=== PATIENT | female | born 1945 | race Caucasian/White ===

== ENCOUNTER 2016-05-03 09:03 | Outpatient (CLI) | payer MEDICARE, OTHER | END 2016-05-03 09:04 | disposition home or self-care (01) | DX: R73.01 Impaired fasting glucose (principal); D64.9 Anemia, unspecified; R03.0 Elevated blood-pressure reading, without diagnosis of hypertension; M15.9 Polyosteoarthritis, unspecified; M25.50 Pain in unspecified joint ==

== ENCOUNTER 2016-05-24 13:11 | Outpatient (CLI) | payer MEDICARE, OTHER | END 2016-05-24 13:12 | disposition home or self-care (01) | DX: R06.02 Shortness of breath (principal); G47.30 Sleep apnea, unspecified; R05 Cough ==

== ENCOUNTER 2016-06-11 13:15 | Outpatient (CLI) | payer MEDICARE, OTHER | END 2016-06-11 13:16 | disposition home or self-care (01) | DX: R06.00 Dyspnea, unspecified (principal) ==

== ENCOUNTER 2016-06-13 15:27 | Outpatient (CLI) | payer MEDICARE, OTHER | END 2016-06-13 15:28 | disposition home or self-care (01) | DX: Z12.31 Encounter for screening mammogram for malignant neoplasm of breast (principal) ==

== ENCOUNTER 2016-06-27 12:53 | Emergency (ER) | payer MEDICARE, OTHER ==
[2016-06-27] MEDS ORDERED: oxyCOD/ACETAMIN 5 MG/325 MG TABLET PO STA (13:23)
[2016-06-27] MEDS ORDERED: oxyCOD/ACETAMIN 5 MG/325 MG TABLET PO ONE (13:29)
== END 2016-06-27 15:05 | disposition home or self-care (01) ==
DX: M17.11 Unilateral primary osteoarthritis, right knee (principal); M54.31 Sciatica, right side; K21.9 Gastro-esophageal reflux disease without esophagitis; Z87.11 Personal history of peptic ulcer disease; M19.90 Unspecified osteoarthritis, unspecified site
CPT/HCPCS: 73564; 99283; A9270

== ENCOUNTER 2017-04-30 10:28 | Outpatient (CLI) | payer MEDICARE, OTHER ==
[2017-04-30 11:02] LABS: ABNORMAL LYMPHS % (MANUAL) 0 %; BAND NEUTROPHILS % (MANUAL) 0 %
[2017-04-30 11:08] LABS: BASOPHILS % (AUTO) 0.6 %; EOSINOPHILS % (AUTO) 3.4 %; HGB - HEMOGLOBIN 10.3 g/dL (12.0-16.0); LYMPHOCYTES % (AUTO) 22.9 %; MEAN CORPUSCULAR HEMOGLOBIN 22.7 pg (27.0-31.0); MEAN CORPUSCULAR HGB CONC 31.5 g/dL (32.0-36.0); MEAN CORPUSCULAR VOLUME 72.3 fL (81.0-99.0); MEAN RETIC VALUE 98.8; MONOCYTES % (AUTO) 7.2 %; NEUTROPHILS % (AUTO) 65.9 %; PLT - PLATELET COUNT 284 10^3/uL (130-450); RED BLOOD COUNT 4.53 10^6/uL (4.20-5.40); RED CELL DISTRIBUTION WIDTH 18.6 % (12.0-15.0); WHITE BLOOD COUNT 8.1 x10^3/uL (4.8-10.8)
[2017-04-30 11:27] LABS: BASOPHILS # (MANUAL) 0.1 10^3/uL (0-0.1); BASOPHILS % (MANUAL) 1 %; DIFFERENTIAL COMMENT MANUAL DIFFERENTIAL; EOSINOPHILS # (MANUAL) 0.4 10^3/uL (0-0.7); LYMPHOCYTES # (MANUAL) 2.6 10^3/uL (1.5-3.5); LYMPHOCYTES % (MANUAL) 18 %; MONOCYTES # (MANUAL) 0.5 10^3/uL (0.0-1.0); NEUTROPHILS # (MANUAL) 4.5 10^3/uL (1.5-6.6); NEUTROPHILS % (MANUAL) 56 %; PLATELET MORPHOLOGY RARE GIANT PLATELETS (NORMAL); RBC MORPHOLOGY (MULTIPLE) 2+ ANISOCYTOSIS (NORMAL)
[2017-04-30 11:44] LABS: FERRITIN 9.9 ng/mL (11.0-306.8)
[2017-04-30 11:45] LABS: % IRON SATURATION 6 % (20-50); IRON 27 ug/dL (28-170); TOTAL IRON BINDING CAPACITY 445 ug/dL (250-450); TRANSFERRIN 318 mg/dL (192-382)
[2017-04-30 11:47] LABS: FOLATE 8.6 ng/mL (5.90 - >24.8)
== END 2017-04-30 10:29 | disposition home or self-care (01) ==
LOC: LAB 10:28
PROVIDERS: ATTEND Physician Assistant
DX: G25.81 Restless legs syndrome (principal); R06.09 Other forms of dyspnea; R79.82 Elevated C-reactive protein (CRP); D64.9 Anemia, unspecified; R53.83 Other fatigue
CPT/HCPCS: 36415; 81599; 82607; 82728; 82746; 82784; 83010; 83540; 84466; 85025; 85044; 86880

== ENCOUNTER 2017-06-27 09:21 | Outpatient (CLI) | payer MEDICARE, OTHER ==
[2017-06-27 09:39] LABS: ABNORMAL LYMPHS % (MANUAL) 0 %; BAND NEUTROPHILS % (MANUAL) 0 %
[2017-06-27 17:46] LABS: BASOPHILS % (AUTO) 1.2 %; EOSINOPHILS % (AUTO) 3.2 %; HGB - HEMOGLOBIN 10.2 g/dL (12.0-16.0); LYMPHOCYTES % (AUTO) 21.9 %; MEAN CORPUSCULAR HEMOGLOBIN 22.1 pg (27.0-31.0); MEAN CORPUSCULAR HGB CONC 29.9 g/dL (32.0-36.0); MEAN CORPUSCULAR VOLUME 73.8 fL (81.0-99.0); MEAN PLATELET VOLUME 8.9 fL (7.9-10.8); MEAN RETIC VALUE 101.9; MONOCYTES % (AUTO) 5.5 %; NEUTROPHILS % (AUTO) 68.2 %; PLT - PLATELET COUNT 287 10^3/uL (130-450); RED BLOOD COUNT 4.61 10^6/uL (4.20-5.40); RED CELL DISTRIBUTION WIDTH 18.1 % (12.0-15.0); WHITE BLOOD COUNT 8.4 x10^3/uL (4.8-10.8)
[2017-06-27 18:31] LABS: ALBUMIN 4.1 g/dL (3.2-5.5); ALBUMIN/GLOBULIN RATIO 1.4 (1.0-2.2); BILIRUBIN,TOTAL 0.2 mg/dL (0.2-1.0); CREATININE 0.9 mg/dL (0.4-1.0)
[2017-06-27 21:22] LABS: BASOPHILS # (MANUAL) 0.1 10^3/uL (0-0.1); BASOPHILS % (MANUAL) 1 %; EOSINOPHILS # (MANUAL) 0.3 10^3/uL (0-0.7); LYMPHOCYTES # (MANUAL) 2.1 10^3/uL (1.5-3.5); LYMPHOCYTES % (MANUAL) 23 %; MONOCYTES # (MANUAL) 0.2 10^3/uL (0.0-1.0); NEUTROPHILS # (MANUAL) 5.8 10^3/uL (1.5-6.6); NEUTROPHILS % (MANUAL) 69 %
[2017-06-27 21:26] LABS: PLATELET ESTIMATE, MANUAL NORMAL (130-450,000) (NORMAL); PLATELET MORPHOLOGY 1+ GIANT PLATELETS (NORMAL)
[2017-06-27 21:27] LABS: DIFFERENTIAL COMMENT MANUAL DIFFERENTIAL
== END 2017-06-27 09:22 | disposition home or self-care (01) ==
LOC: LAB.F 09:21
PROVIDERS: ATTEND Physician Assistant
DX: D64.9 Anemia, unspecified (principal)
CPT/HCPCS: 36415; 80053; 81599; 82784; 83010; 83615; 85025; 85044; 86880

== ENCOUNTER 2019-07-05 18:59 | Outpatient (CLI) | payer MEDICARE, OTHER | END 2019-07-05 19:00 | disposition home or self-care (01) | LOC: COV 18:59 | PROVIDERS: ATTEND Family Medicine | DX: R53.83 Other fatigue (principal) | CPT/HCPCS: 81599 ==

== ENCOUNTER 2019-08-27 07:16 | Outpatient (CLI) | payer MEDICARE, OTHER ==
[2019-08-27 15:31] LABS: BASOPHILS % (AUTO) 0.4 %; EOSINOPHILS # (AUTO) 0.2 10^3/uL (0.0-0.7); EOSINOPHILS % (AUTO) 2.4 %; HGB - HEMOGLOBIN 11.6 g/dL (12.0-16.0); LYMPHOCYTES # (AUTO) 2.4 10^3/uL (1.5-3.5); LYMPHOCYTES % (AUTO) 25.8 %; MEAN CORPUSCULAR HGB CONC 30.7 g/dL (32.0-36.0); MEAN CORPUSCULAR VOLUME 84.8 fL (81.0-99.0); MEAN PLATELET VOLUME 10.8 fL (7.9-10.8); MONOCYTES # (AUTO) 0.6 10^3/uL (0.0-1.0); MONOCYTES % (AUTO) 6.5 %; NEUTROPHILS % (AUTO) 64.4 %; PLT - PLATELET COUNT 280 10^3/uL (130-450); RED BLOOD COUNT 4.46 10^6/uL (4.20-5.40); WHITE BLOOD COUNT 9.2 x10^3/uL (4.8-10.8)
[2019-08-27 15:42] LABS: ALBUMIN/GLOBULIN RATIO 1.4 (1.0-2.2); BILIRUBIN,TOTAL 0.5 mg/dL (0.2-1.0); CALCIUM 8.8 mg/dL (8.5-10.3); TOTAL PROTEIN 6.9 g/dL (6.7-8.2)
[2019-08-27 16:27] LABS: HB2 TOTAL 11.9 g/dL; HEMOGLOBIN A1C 0.57 g/dL; HEMOGLOBIN A1C % 6.5 % (4.6-6.2)
== END 2019-08-27 07:17 | disposition home or self-care (01) ==
LOC: LAB.S 07:16
PROVIDERS: ATTEND Physician Assistant
DX: D50.9 Iron deficiency anemia, unspecified (principal); R73.01 Impaired fasting glucose
CPT/HCPCS: 36415; 80053; 83036; 85025

== ENCOUNTER 2020-02-29 10:22 | Outpatient (CLI) | payer MEDICARE, OTHER | END 2020-02-29 10:23 | disposition home or self-care (01) | LOC: COV 10:22 | PROVIDERS: ATTEND Family Medicine | DX: R53.83 Other fatigue (principal); Z20.828 Contact with and (suspected) exposure to other viral communicable diseases; M79.10 Myalgia, unspecified site; R19.7 Diarrhea, unspecified; R11.0 Nausea; R09.81 Nasal congestion ==

== ENCOUNTER 2020-05-31 10:31 | Outpatient (CLI) | payer MEDICARE, OTHER ==
--- NOTE | 2020-06-01 08:25 | Mammography Report ---
BILATERAL DIGITAL SCREENING MAMMOGRAM 3D/2D: 05/31/2020 CLINICAL: Routine screening. Routine screening. Comparison is made to exams dated: 06/13/2016 mammogram, 11/11/2014 mammogram, and 11/06/2012 mammogram - [facility]. There are scattered fibroglandular elements in both breasts. No significant masses, calcifications, or other findings are seen in either breast. There has been no significant interval change. IMPRESSION: NEGATIVE There is no mammographic evidence of malignancy. A 1 year screening mammogram is recommended. This exam was interpreted at Station ID: [id number]. NOTE: For mammograms, a report in lay terms will be sent to the patient. Approximately 15% of breast malignancies will not be visualized mammographically. In the management of a palpable breast mass, a negative mammogram must not discourage biopsy of a clinically suspicious lesion. Electronically Signed By: Chelsie alvarado/penrad:05/31/2020 11:48:43 ACR BI-RADS Category 1: Negative 3341F PARENCHYMAL PATTERN: (A) - The breast(s) demonstrate(s) scattered fibroglandular densities. BI-RADS CATEGORY: (1) - 1 RECOMMENDATION: (ANNUAL) - Recommend routine annual screening mammography. [id number] 1 year screening LATERALITY: (B)
== END 2020-05-31 10:32 | disposition home or self-care (01) ==
LOC: DI.S 10:31
DX: Z12.31 Encounter for screening mammogram for malignant neoplasm of breast (principal)

== ENCOUNTER 2020-06-09 08:00 | Outpatient (CLI) | payer MEDICARE, OTHER | END 2020-06-09 23:59 | disposition home or self-care (01) | LOC: LAB.S 08:00 | PROVIDERS: ATTEND Internal Medicine | DX: R89.4 Abnormal immunological findings in specimens from other organs, systems and tissues (principal) | CPT/HCPCS: 81599; 82570; 84156; 84166; 86335 ==

== ENCOUNTER 2020-08-10 15:06 | Outpatient (CLI) | payer MEDICARE, OTHER ==
[2020-08-10 20:27] LABS: CALCIUM 9.4 mg/dL (8.5-10.3); POTASSIUM 4.2 mmol/L (3.5-5.0); URIC ACID 7.6 mg/dL (2.6-7.2)
== END 2020-08-10 15:07 | disposition home or self-care (01) ==
LOC: LAB.S 15:06
PROVIDERS: ATTEND Registered Nurse
DX: M79.644 Pain in right finger(s) (principal)
CPT/HCPCS: 36415; 80048; 84550

== ENCOUNTER 2020-08-22 14:24 | Outpatient (CLI) | payer MEDICARE, OTHER ==
--- NOTE | 2020-08-22 15:09 | XRAY Report ---
PROCEDURE: Finger(s) RT INDICATIONS: GOUT, UNSPECIFIED TECHNIQUE: AP hand, 3 views of the second finger(s) acquired. COMPARISON: X-ray hand 06/27/2009 FINDINGS: Bones: No fractures or dislocations. No suspicious bony lesions. Scattered IP degenerative narrowi ng is present. There are scattered areas of periarticular lucency and osteophytes. Bone cyst is suspe cted to be present at the base of the third middle phalanx. Soft tissues: No suspicious soft tissue calcifications. Tendon anchors are noted at the base of the first and second metacarpal. IMPRESSION: 1. Scattered IP narrowing with periarticular lucencies. The latter are suggestive of subchondral cyst s. However, very small areas of erosion cannot be excluded. Classic erosive appearance of gout is not clearly identified. Reviewed by: Elisabeth Gandara MD on 08/22/2020 3:08 PM PDT Approved by: Elisabeth Gandara MD on 08/22/2020 3:08 PM PDT Station ID: [id number]
== END 2020-08-22 14:25 | disposition home or self-care (01) ==
LOC: DI.S 14:24
PROVIDERS: ATTEND Registered Nurse
DX: M10.9 Gout, unspecified (principal)

== ENCOUNTER 2020-08-28 09:12 | Outpatient (CLI) | payer MEDICARE, OTHER ==
[2020-08-28 15:54] LABS: BASOPHILS % (AUTO) 0.3 %; EOSINOPHILS # (AUTO) 0.1 10^3/uL (0.0-0.7); EOSINOPHILS % (AUTO) 0.6 %; HCT - HEMATOCRIT 38.9 % (37.0-47.0); HGB - HEMOGLOBIN 11.7 g/dL (12.0-16.0); LYMPHOCYTES # (AUTO) 3.2 10^3/uL (1.5-3.5); LYMPHOCYTES % (AUTO) 26.6 %; MEAN CORPUSCULAR HEMOGLOBIN 26.5 pg (27.0-31.0); MEAN CORPUSCULAR HGB CONC 30.1 g/dL (32.0-36.0); MEAN CORPUSCULAR VOLUME 88.2 fL (81.0-99.0); MEAN PLATELET VOLUME 11.6 fL (7.9-10.8); MONOCYTES # (AUTO) 0.7 10^3/uL (0.0-1.0); MONOCYTES % (AUTO) 5.7 %; NEUTROPHILS # (AUTO) 7.9 10^3/uL (1.5-6.6); PLT - PLATELET COUNT 248 10^3/uL (130-450); RED BLOOD COUNT 4.41 10^6/uL (4.20-5.40); RED CELL DISTRIBUTION WIDTH 18.8 % (12.0-15.0); WHITE BLOOD COUNT 11.9 x10^3/uL (4.8-10.8)
[2020-08-28 21:05] LABS: ESTIMATED AVERAGE GLUCOSE 128 mg/dL (70-100); HEMOGLOBIN A1c% 6.1 % (4.27-6.07)
[2020-08-28 21:25] LABS: RHEUMATOID FACTOR NEGATIVE (Negative)
[2020-08-30 15:16] LABS: ANA SCREEN NEGATIVE (NEGATIVE)
== END 2020-08-28 09:13 | disposition home or self-care (01) ==
LOC: LAB.S 09:12
PROVIDERS: ATTEND Registered Nurse
DX: M25.50 Pain in unspecified joint (principal); R79.82 Elevated C-reactive protein (CRP); E11.9 Type 2 diabetes mellitus without complications
CPT/HCPCS: 36415; 83036; 85025; 85651; 86038; 86140; 86430

== ENCOUNTER 2020-12-09 12:24 | Outpatient (CLI) | payer MEDICARE, OTHER ==
--- NOTE | 2020-12-09 18:17 | XRAY Report ---
PROCEDURE: Chest 2 View X-Ray INDICATIONS: ACUTE COUGH TECHNIQUE: 2 view(s) of the chest. COMPARISON: 06/11/2016, 05/09/2014 FINDINGS: Surgical changes and devices: Cholecystectomy clips are seen. Lungs and pleura: No pleural effusions or pneumothorax. Mild generalized interstitial prominence can be seen, yet without focal infiltrates. Low lung volumes can be seen, causing a crowded appearance t o the lung markings. Mediastinum: Mediastinal contours are normal. Heart size is normal. A moderate to prominent hiatal hernia is seen. Bones and chest wall: No suspicious bony abnormalities. Degenerative changes can be seen involving the thoracic spine and the shoulders. Soft tissues appear unremarkable. IMPRESSION: Mild generalized interstitial prominence can be seen. Differential diagnosis includes ar tifact, pulmonary edema, and atypical infection (including COVID 19 pneumonia). Please consider a short-term follow-up 2 view chest series (performed in deep inspiration) for furthe r evaluation. Moderate hiatal hernia. Postoperative and degenerative changes are seen. Reviewed by: Kaiser Hector MD on 12/09/2020 5:16 PM THOMAS Approved by: Kaiser Hector MD on 12/09/2020 5:16 PM THOMAS Station ID: [id number]
== END 2020-12-09 12:25 ==
LOC: DI.S 12:24
PROVIDERS: ATTEND Emergency Medicine
DX: R91.8 Other nonspecific abnormal finding of lung field (principal); Z20.822 Contact with and (suspected) exposure to COVID-19
CPT/HCPCS: 71046; U0004

== ENCOUNTER 2020-12-13 11:17 | Outpatient (CLI) | payer MEDICARE, OTHER ==
--- NOTE | 2020-12-13 11:45 | XRAY Report ---
PROCEDURE: Chest 2 View X-Ray INDICATIONS: COUGH, UNSPECIFIED TECHNIQUE: 2 view(s) of the chest. COMPARISON: December 09, 2020 FINDINGS: Surgical changes and devices: None. Lungs and pleura: Mildly coarsened interstitial markings. No pleural effusions or pneumothorax. Edmond gs are clear. Mediastinum: Mediastinal contours are normal. Heart size is normal. Bones and chest wall: No suspicious bony abnormalities. Soft tissues appear unremarkable. IMPRESSION: No acute cardiopulmonary abnormality. Reviewed by: Maximus Hemphill MD on 12/13/2020 11:43 AM PDT Approved by: Maximus Hemphill MD on 12/13/2020 11:43 AM PDT Station ID: [id number]
== END 2020-12-13 11:18 | disposition home or self-care (01) ==
LOC: DI.S 11:17
PROVIDERS: ATTEND Registered Nurse
DX: R05.9 Cough, unspecified (principal)

== ENCOUNTER 2021-01-29 11:18 | Outpatient (CLI) | payer MEDICARE, OTHER ==
[2021-01-29] MEDS ORDERED: IOVERSOL 320 50 ML VIAL ONE (11:28)
[2021-01-29] MEDS ORDERED: IOVERSOL 320 100 ML VIAL IVP ONE ×2 (11:28→18:40)
--- NOTE | 2021-01-29 13:19 | CT Report ---
PROCEDURE: Abdomen/Pelvis W INDICATIONS: abd pain CONTRAST: IV CONTRAST: Optiray 320 ml: 100 PO CONTRAST: Optiray 320 ml50 TECHNIQUE: After the administration of oral and intravenous contrast, 5 mm thick sections acquired from the diap hragms to the symphysis. 5 mm thick coronal and sagittal reformats were acquired. For radiation dos e reduction, the following was used: automated exposure control, adjustment of mA and/or kV accordin g to patient size. COMPARISON: CT abdomen and pelvis 08/17/2015. FINDINGS: Image quality: Excellent. ABDOMEN: Lung bases: Lung bases are clear. Heart size is normal. Moderate to large hiatal hernia is similar in size. Solid organs: Liver and spleen are normal in size. Hepatic steatosis. Gallbladder is surgically abse nt. Biliary system is non dilated. Pancreas enhances normally. No adrenal nodules. Kidneys demons trate normal size and enhancement, without hydronephrosis. Peritoneum and bowel: Bowel loops demonstrate normal wall thickness and caliber. No free fluid or a ir. Nodes and vessels: No retroperitoneal or mesenteric adenopathy by size criteria. Aorta and inferior vena cava are normal in size. Miscellaneous: Tiny umbilical hernia PELVIS: Genitourinary: Bladder is decompressed. Miscellaneous: No inguinal hernias or adenopathy. Bones: No suspicious bony lesions. DDD. No vertebral body compression fractures. IMPRESSION: 1. No acute abnormality is identified. No free fluid. 2. Moderate to large hiatal hernia is unchanged. Reviewed by: Francisco Gillis MD on 01/29/2021 1:18 PM PST Approved by: Francisco Gillis MD on 01/29/2021 1:18 PM PST Station ID: [id number]
[2021-01-29] MEDS ORDERED: IOVERSOL 320 50 ML VIAL PO ONE (18:41)
== END 2021-01-29 11:19 | disposition home or self-care (01) ==
LOC: DI 11:18
PROVIDERS: ATTEND Registered Nurse
DX: K44.9 Diaphragmatic hernia without obstruction or gangrene (principal); R10.33 Periumbilical pain
CPT/HCPCS: 36415; 74177; 82565; Q9967

== ENCOUNTER 2021-03-20 08:36 | Outpatient (CLI) | payer MEDICARE, OTHER ==
--- NOTE | 2021-03-20 09:05 | XRAY Report ---
PROCEDURE: Foot 3 View LT INDICATIONS: SPRAIN OF LEFT FOOT TECHNIQUE: 3 views of the foot were acquired. COMPARISON: None. FINDINGS: Bones: No acute fractures or dislocations. There is coarse heterotopic calcification adjacent to the lateral cuneiform. There is moderate degenerative change in the midfoot and at the tibiotalar joint. There are calcaneal enthesophytes. No suspicious bony lesions. Soft tissues: No tibiotalar joint effusion. Achilles tendon appears normal. Small vessel vascular c alcifications. IMPRESSION: No acute osseous abnormality. Reviewed by: Francisco Gillis MD on 03/20/2021 9:04 AM [facility] Approved by: Francisco Gillis MD on 03/20/2021 9:04 AM [facility] Station ID: [id number]
== END 2021-03-20 23:59 | disposition home or self-care (01) ==
LOC: DI.S 08:36
PROVIDERS: ATTEND Emergency Medicine
DX: S93.602A Unspecified sprain of left foot, initial encounter (principal)

== ENCOUNTER 2021-05-02 10:14 | Outpatient (CLI) | payer MEDICARE, OTHER ==
[2021-05-04 11:26] LABS: ANA SCREEN NEGATIVE (NEGATIVE)
== END 2021-05-02 10:15 | disposition home or self-care (01) ==
LOC: LAB.S 10:14
PROVIDERS: ATTEND Dermatology Dermatopathology
DX: M32.9 Systemic lupus erythematosus, unspecified (principal); M33.90 Dermatopolymyositis, unspecified, organ involvement unspecified
CPT/HCPCS: 36415; 82085; 82550; 86038

== ENCOUNTER 2021-06-22 07:48 | Outpatient (CLI) | payer MEDICARE, OTHER ==
[2021-06-22 15:26] LABS: BASOPHILS % (AUTO) 0.6 %; EOSINOPHILS # (AUTO) 0.3 10^3/uL (0.0-0.7); EOSINOPHILS % (AUTO) 4.2 %; HCT - HEMATOCRIT 36.8 % (37.0-47.0); HGB - HEMOGLOBIN 11.5 g/dL (12.0-16.0); LYMPHOCYTES # (AUTO) 1.5 10^3/uL (1.5-3.5); LYMPHOCYTES % (AUTO) 21.1 %; MEAN CORPUSCULAR HEMOGLOBIN 27.9 pg (27.0-31.0); MEAN CORPUSCULAR HGB CONC 31.3 g/dL (32.0-36.0); MEAN CORPUSCULAR VOLUME 89.3 fL (81.0-99.0); MEAN PLATELET VOLUME 10.5 fL (7.9-10.8); MONOCYTES # (AUTO) 0.5 10^3/uL (0.0-1.0); NEUTROPHILS # (AUTO) 4.7 10^3/uL (1.5-6.6); NEUTROPHILS % (AUTO) 66.3 %; PLT - PLATELET COUNT 252 10^3/uL (130-450); RED BLOOD COUNT 4.12 10^6/uL (4.20-5.40); RED CELL DISTRIBUTION WIDTH 15.6 % (12.0-15.0); WHITE BLOOD COUNT 7.1 x10^3/uL (4.8-10.8)
[2021-06-22 15:48] LABS: ALBUMIN/GLOBULIN RATIO 1.4 (1.0-2.2); ALKALINE PHOSPHATASE 79 IU/L (42-121); ALT ALANINE AMINOTRANSFERASE 26 IU/L (10-60); AMYLASE 61 U/L (28-100); AST ASPARTATE AMINOTRANSFERASE 20 IU/L (10-42); BILIRUBIN,TOTAL 0.5 mg/dL (0.2-1.0); BUN - BLOOD UREA NITROGEN 21 mg/dL (6-20); CALCIUM 9.4 mg/dL (8.5-10.3); CARBON DIOXIDE - CO2 27 mmol/L (21-32); CHLORIDE 105 mmol/L (101-111); CHOL/HDL RATIO 4.6 (<4.4); CHOLESTEROL 241 mg/dL; GFR - MDRD 54 (>89); GLUCOSE 120 mg/dL (70-100); HDL CHOLESTEROL 52 mg/dL; LDL CHOLESTEROL,CALCULATED 159 mg/dL; LDL/HDL RATIO 3.1 (<4.4); LIPASE 30 U/L (22-51); POTASSIUM 4.5 mmol/L (3.5-5.0); SODIUM 140 mmol/L (135-145); TOTAL PROTEIN 6.8 g/dL (6.7-8.2); TRIGLYCERIDES 150 mg/dL; VLDL CHOLESTEROL 30 mg/dL
[2021-06-22 15:49] LABS: THYROID STIMULATING HORMONE 1.99 uIU/mL (0.34-5.60)
[2021-06-22 16:14] LABS: ESTIMATED AVERAGE GLUCOSE 123 mg/dL (70-100); HEMOGLOBIN A1c% 5.9 % (4.27-6.07)
== END 2021-06-22 23:59 | disposition home or self-care (01) ==
LOC: LAB.S 07:48
DX: R11.0 Nausea (principal); R19.7 Diarrhea, unspecified; R53.83 Other fatigue
CPT/HCPCS: 36415; 80053; 80061; 81599; 82150; 83036; 83690; 83721; 84443; 85025; 85651; 86140

== ENCOUNTER 2021-06-25 15:32 | Outpatient (CLI) | payer MEDICARE, OTHER | END 2021-06-25 15:33 | disposition home or self-care (01) | LOC: LAB.S 15:32 | DX: R11.0 Nausea (principal); R19.7 Diarrhea, unspecified; R53.83 Other fatigue | CPT/HCPCS: 81599; 87177; 87209 ==

== ENCOUNTER 2021-07-04 08:00 | Outpatient (CLI) | payer MEDICARE, OTHER ==
[2021-07-05 08:11] LABS: ADENOVIRUS F 40/41 Not Detected (Not Detected); ASTROVIRUS Not Detected (Not Detected); C DIFFICILE TOXIN A/B Not Detected (Not Detected); CAMPYLOBACTER Not Detected (Not Detected); CRYPTOSPORIDIUM Not Detected (Not Detected); CYCLOSPORA CAYETANENSIS Not Detected (Not Detected); ENTAMOEBA HISTOLYTICA Not Detected (Not Detected); ENTEROAGGREGATIVE E COLI Not Detected (Not Detected); ENTEROPATHOGENIC E COLI Not Detected (Not Detected); ENTEROTOXIGENIC E COLI Not Detected (Not Detected); GIARDIA LAMBLIA Not Detected (Not Detected); NOROVIRUS GI/GII Not Detected (Not Detected); PLESIOMONAS SHIGELLOIDES Not Detected (Not Detected); ROTAVIRUS A Not Detected (Not Detected); SALMONELLA Not Detected (Not Detected); SAPOVIRUS Not Detected (Not Detected); SHIGA-TOXIN-PRODUCING E COLI Not Detected (Not Detected); SHIGELLA/ENTEROINVASIVE E COLI Not Detected (Not Detected); VIBRIO Not Detected (Not Detected); VIBRIO CHOLERAE Not Detected (Not Detected); YERSINIA ENTEROCOLITICA Not Detected (Not Detected)
== END 2021-07-04 23:59 | disposition home or self-care (01) ==
LOC: LAB.S 08:00
DX: R19.7 Diarrhea, unspecified (principal)
CPT/HCPCS: 0097U; 87507

== ENCOUNTER 2021-07-25 15:11 | Emergency (ER) | payer MEDICARE, OTHER ==
[2021-07-25 15:40] LABS: BASOPHILS % (AUTO) 0.4 %; EOSINOPHILS # (AUTO) 0.4 10^3/uL (0.0-0.7); EOSINOPHILS % (AUTO) 3.7 %; HCT - HEMATOCRIT 40.7 % (37.0-47.0); HGB - HEMOGLOBIN 12.8 g/dL (12.0-16.0); LYMPHOCYTES # (AUTO) 2.4 10^3/uL (1.5-3.5); LYMPHOCYTES % (AUTO) 23.7 %; MEAN CORPUSCULAR HEMOGLOBIN 28.1 pg (27.0-31.0); MEAN CORPUSCULAR HGB CONC 31.4 g/dL (32.0-36.0); MEAN CORPUSCULAR VOLUME 89.5 fL (81.0-99.0); MEAN PLATELET VOLUME 10.4 fL (7.9-10.8); MONOCYTES # (AUTO) 0.8 10^3/uL (0.0-1.0); MONOCYTES % (AUTO) 7.4 %; NEUTROPHILS # (AUTO) 6.5 10^3/uL (1.5-6.6); NEUTROPHILS % (AUTO) 63.9 %; PLT - PLATELET COUNT 248 10^3/uL (130-450); RED BLOOD COUNT 4.55 10^6/uL (4.20-5.40); RED CELL DISTRIBUTION WIDTH 15.1 % (12.0-15.0); WHITE BLOOD COUNT 10.1 x10^3/uL (4.8-10.8)
--- NOTE | 2021-07-25 15:49 | ED Physician Documentation ---
PD HPI CHEST PAIN - Stated complaint Stated Complaint: SENT BY DOC - Chief complaint Chief Complaint: Cardiac - History obtained from History obtained from: Patient - Additional information Additional information: 75-year-old woman has been quite fatigued for several weeks. Seeing hematology for same and had an iron infusion a few weeks ago which was not helpful. For the last 3 weeks she has had shortness of breath. It is exertional. There is no orthopnea, pedal edema or calf pain. She was at the oncologist office today who did an EKG which she thought was concerning for pericarditis and referred here for further evaluation and treatment. Review of Systems Constitutional: reports: Fatigue. denies: Fever, Chills Throat: denies: Sore throat Cardiac: denies: Chest pain / pressure, Palpitations, Pedal edema, Calf pain Respiratory: reports: Dyspnea PD PAST MEDICAL HISTORY - Past Medical History Cardiovascular: Hypertension Respiratory: None, Pneumonia Endocrine/Autoimmune: Type 2 diabetes GI: GERD, GI bleed, Ulcers, Diverticulitis HONE OPERATOR: None : None, Frequency HEENT: None, Dental implants Psych: Depression, Anxiety Musculoskeletal: Osteoarthritis, Chronic back pain Derm: None - Past Surgical History Past Surgical History: Yes General: Cholecystectomy, Appendectomy, Colonoscopy Ortho: Rotator cuff repair, Other /HONE OPERATOR: Hysterectomy HEENT: Tonsil/Adenoidectomy - Present Medications Home Medications: Ambulatory Orders Medication Instructions Recorded Confirmed Cholecalciferol (Vitamin D3) 1,250 mcg PO DAILY 01/11/20 06/27/21 [Vitamin D3] metFORMIN [Glucophage] 500 mg PO DAILY 01/11/20 06/27/21 Esomeprazole Magnesium [Nexium] 40 mg PO DAILY 06/01/20 06/27/21 Sertraline [Zoloft] 1 tab PO DAILY 08/02/20 06/27/21 - Allergies Allergies/Adverse Reactions: Allergies Allergy/AdvReac Type Severity Reaction Status Date / Time Penicillins Allergy Rash Verified 07/25/21 15:22 - Social History Does the pt smoke?: No Smoking Status: Never smoker Does the pt drink ETOH?: Yes Does the pt have substance abuse?: No - Immunizations Immunizations are current?: Yes - POLST Patient has POLST: No PD ED PE NORMAL - Vitals Vital signs reviewed: Yes - General General: Alert and oriented X 3, No acute distress - HEENT HEENT: PERRL, EOMI - Neck Neck: Supple, no meningeal sign, No bony TTP - Cardiac Cardiac: RRR, No murmur - Respiratory Respiratory: No respiratory distress, Clear bilaterally - Abdomen Abdomen: Non tender - Back Back: No CVA TTP, No spinal TTP - Derm Derm: Normal color, Warm and dry - Extremities Extremities: No edema, No calf tenderness / cord - Neuro Neuro: Alert and oriented X 3, Normal speech Eye Opening: Spontaneous Motor: Obeys Commands Verbal: Oriented GCS Score: 15 - Psych Psych: Normal mood, Normal affect Results - Vitals Vitals: Vital Signs - 24 hr 07/25/21 07/25/21 15:18 15:58 Temperature 36.5 C Heart Rate 96 95 Respiratory 14 17 Rate Blood Pressure 169/84 H 143/81 H O2 Saturation 97 95 Oxygen O2 Source Room air - EKG (time done) 1528 Rate: Other (Twelve-lead EKG done at 1528 hrs. discloses normal sinus rhythm with LVH, LAE, and anterior ST elevation likely related to LVH. No significant change compared to 05/24/2016) - Labs Labs: Laboratory Tests 07/25/21 07/25/21 07/25/21 15:33 15:33 15:33 WBC 10.1 RBC 4.55 Hgb 12.8 Hct 40.7 MCV 89.5 MCH 28.1 MCHC 31.4 L RDW 15.1 H Plt Count 248 MPV 10.4 Neut # (Auto) 6.5 Lymph # (Auto) 2.4 [place] # (Auto) 0.8 Eos # (Auto) 0.4 Baso # (Auto) 0.0 Absolute Nucleated RBC 0.00 Nucleated RBC % 0.0 Sodium 138 Potassium 3.8 Chloride 100 L Carbon Dioxide 27 Anion Gap 11.0 BUN 23 H Creatinine 1.0 Estimated GFR (MDRD) 54 L Glucose 170 H Calcium 9.4 Magnesium 2.0 Total Bilirubin < 0.2 L AST 20 ALT 27 Alkaline Phosphatase 86 Troponin I High Sens 7.3 B-Natriuretic Peptide Total Protein 7.2 Albumin 4.2 Globulin 3.0 Albumin/Globulin Ratio 1.4 07/25/21 15:33 WBC RBC Hgb Hct MCV MCH MCHC RDW Plt Count MPV Neut # (Auto) Lymph # (Auto) [place] # (Auto) Eos # (Auto) Baso # (Auto) Absolute Nucleated RBC Nucleated RBC % Sodium Potassium Chloride Carbon Dioxide Anion Gap BUN Creatinine Estimated GFR (MDRD) Glucose Calcium Magnesium Total Bilirubin AST ALT Alkaline Phosphatase Troponin I High Sens B-Natriuretic Peptide 12 Total Protein Albumin Globulin Albumin/Globulin Ratio PD MEDICAL DECISION MAKING - ED course ED course: 75-year-old woman referred from oncology clinic for subacute shortness of breath. EKG is without change and cardiac markers negative. Chest x-ray normal. Departure - Departure Disposition: Home, Self Care Clinical Impression: Dyspnea Condition: Good Record reviewed to determine appropriate education?: Yes Instructions: ED Dyspnea Shortness of Breath Comments: As discussed, your chest x-ray looks fine and your lab work is looking pretty good 2. Borderline blood sugar, but negative cardiac markers and BNP suggesting no recent heart damage or CHF. Follow-up with Laura Cardoza, consider follow-up echocardiography and/or stress test. Return for new or worsening symptoms.
--- NOTE | 2021-07-25 15:51 | XRAY Report ---
PROCEDURE: Chest 1 View X-Ray INDICATIONS: dyspnea TECHNIQUE: One view of the chest was acquired. COMPARISON: 12/13/2020 FINDINGS: Surgical changes and devices: None. Lungs and pleura: No pleural effusions or pneumothorax. Lungs are clear. Mediastinum: Mediastinal contours appear normal. Heart size is normal. Bones and chest wall: No suspicious bony lesions. Overlying soft tissues appear unremarkable. IMPRESSION: No acute process. Reviewed by: Karly Eli MD on 07/25/2021 3:50 PM PDT Approved by: Karly Eli MD on 07/25/2021 3:50 PM PDT Station ID: [id number]
[2021-07-25 15:57] LABS: ALBUMIN 4.2 g/dL (3.2-5.5); ALBUMIN/GLOBULIN RATIO 1.4 (1.0-2.2); ALKALINE PHOSPHATASE 86 IU/L (42-121); ALT ALANINE AMINOTRANSFERASE 27 IU/L (10-60); AST ASPARTATE AMINOTRANSFERASE 20 IU/L (10-42); BILIRUBIN,TOTAL < 0.2 mg/dL (0.2-1.0); BUN - BLOOD UREA NITROGEN 23 mg/dL (6-20); CALCIUM 9.4 mg/dL (8.5-10.3); CARBON DIOXIDE - CO2 27 mmol/L (21-32); CHLORIDE 100 mmol/L (101-111); GFR - MDRD 54 (>89); GLUCOSE 170 mg/dL (70-100); POTASSIUM 3.8 mmol/L (3.5-5.0); SODIUM 138 mmol/L (135-145); TOTAL PROTEIN 7.2 g/dL (6.7-8.2)
[2021-07-25 16:35] VITALS: BP 141/84
== END 2021-07-25 16:34 | disposition home or self-care (01) ==
LOC: ED 15:11
DX: R06.09 Other forms of dyspnea (principal); E11.9 Type 2 diabetes mellitus without complications; Z79.84 Long term (current) use of oral hypoglycemic drugs; I10 Essential (primary) hypertension
CPT/HCPCS: 36415; 80053; 83735; 83880; 84484; 85025; 93005; 99284

== ENCOUNTER 2021-08-30 10:36 | Outpatient (CLI) | payer MEDICARE, OTHER ==
[2021-08-31 10:09] LABS: SARS-COV-2 SEMI-QUANT IGG AB >800.0 AU/mL (Neg <13.0); SARS-COV-2 SPIKE AB INTERP Positive (.)
== END 2021-08-30 10:37 | disposition home or self-care (01) ==
LOC: LAB.S 10:36
PROVIDERS: ATTEND Registered Nurse
DX: Z01.84 Encounter for antibody response examination (principal)
CPT/HCPCS: 86769

== ENCOUNTER 2021-09-26 13:49 | Outpatient (CLI) | payer MEDICARE, OTHER | END 2021-09-26 13:50 | disposition short-term general hospital (02) | LOC: EMS 13:49 | DX: R07.9 Chest pain, unspecified (principal) | CPT/HCPCS: A0425; A0427 ==

== ENCOUNTER 2022-05-09 10:32 | Outpatient (CLI) | payer MEDICARE, OTHER ==
[2022-05-09 14:10] LABS: BASOPHILS % (AUTO) 0.5 %; EOSINOPHILS # (AUTO) 0.2 10^3/uL (0.0-0.7); EOSINOPHILS % (AUTO) 3.5 %; HCT - HEMATOCRIT 40.7 % (37.0-47.0); HGB - HEMOGLOBIN 12.8 g/dL (12.0-16.0); LYMPHOCYTES # (AUTO) 1.5 10^3/uL (1.5-3.5); MEAN CORPUSCULAR HEMOGLOBIN 27.2 pg (27.0-31.0); MEAN CORPUSCULAR HGB CONC 31.4 g/dL (32.0-36.0); MEAN CORPUSCULAR VOLUME 86.4 fL (81.0-99.0); MEAN PLATELET VOLUME 10.9 fL (7.9-10.8); MONOCYTES # (AUTO) 0.5 10^3/uL (0.0-1.0); MONOCYTES % (AUTO) 7.5 %; NEUTROPHILS % (AUTO) 64.2 %; PLT - PLATELET COUNT 213 10^3/uL (130-450); RED BLOOD COUNT 4.71 10^6/uL (4.20-5.40); RED CELL DISTRIBUTION WIDTH 15.3 % (12.0-15.0); WHITE BLOOD COUNT 6.3 x10^3/uL (4.8-10.8)
== END 2022-05-09 10:33 | disposition home or self-care (01) ==
LOC: LAB.S 10:32
PROVIDERS: ATTEND Registered Nurse
DX: M54.59 Other low back pain (principal); M54.16 Radiculopathy, lumbar region
CPT/HCPCS: 36415; 85025; 85651; 86140

== ENCOUNTER 2022-05-14 08:00 | Outpatient (CLI) | payer MEDICARE, OTHER ==
[2022-05-14 15:13] LABS: CREATININE 0.9 mg/dL (0.4-1.0)
== END 2022-05-14 23:59 | disposition home or self-care (01) ==
LOC: LAB.S 08:00
PROVIDERS: ATTEND Family Medicine
DX: R10.9 Unspecified abdominal pain (principal); G89.29 Other chronic pain
CPT/HCPCS: 36415; 82565

== ENCOUNTER 2022-05-28 07:24 | Outpatient (CLI) | payer MEDICARE, OTHER ==
[2022-05-28 14:19] LABS: BASOPHILS % (AUTO) 0.4 %; EOSINOPHILS # (AUTO) 0.1 10^3/uL (0.0-0.7); EOSINOPHILS % (AUTO) 0.6 %; HCT - HEMATOCRIT 42.3 % (37.0-47.0); HGB - HEMOGLOBIN 12.9 g/dL (12.0-16.0); LYMPHOCYTES # (AUTO) 3.6 10^3/uL (1.5-3.5); LYMPHOCYTES % (AUTO) 31.4 %; MEAN CORPUSCULAR HEMOGLOBIN 26.8 pg (27.0-31.0); MEAN CORPUSCULAR HGB CONC 30.5 g/dL (32.0-36.0); MEAN CORPUSCULAR VOLUME 87.8 fL (81.0-99.0); MEAN PLATELET VOLUME 11.1 fL (7.9-10.8); MONOCYTES # (AUTO) 0.8 10^3/uL (0.0-1.0); MONOCYTES % (AUTO) 6.6 %; NEUTROPHILS # (AUTO) 6.9 10^3/uL (1.5-6.6); NEUTROPHILS % (AUTO) 60.3 %; PLT - PLATELET COUNT 255 10^3/uL (130-450); RED BLOOD COUNT 4.82 10^6/uL (4.20-5.40); WHITE BLOOD COUNT 11.4 x10^3/uL (4.8-10.8)
[2022-05-28 15:05] LABS: THYROID STIMULATING HORMONE 3.21 uIU/mL (0.34-5.60)
[2022-05-28 15:52] LABS: ALBUMIN 3.9 g/dL (3.2-5.5); ALBUMIN/GLOBULIN RATIO 1.4 (1.0-2.2); ALKALINE PHOSPHATASE 75 IU/L (42-121); ALT ALANINE AMINOTRANSFERASE 18 IU/L (10-60); AST ASPARTATE AMINOTRANSFERASE 15 IU/L (10-42); BILIRUBIN,TOTAL 0.3 mg/dL (0.2-1.0); BUN - BLOOD UREA NITROGEN 27 mg/dL (6-20); CALCIUM 9.1 mg/dL (8.5-10.3); CARBON DIOXIDE - CO2 29 mmol/L (21-32); CHLORIDE 105 mmol/L (101-111); CHOL/HDL RATIO 3.7 (<4.4); CHOLESTEROL 203 mg/dL; CREATININE 1.1 mg/dL (0.4-1.0); GFR - MDRD 48 (>89); GLUCOSE 90 mg/dL (70-100); HDL CHOLESTEROL 55 mg/dL; LDL CHOLESTEROL,CALCULATED 127 mg/dL; LDL/HDL RATIO 2.3 (<4.4); POTASSIUM 3.8 mmol/L (3.5-5.0); SODIUM 138 mmol/L (135-145); TOTAL PROTEIN 6.6 g/dL (6.7-8.2); TRIGLYCERIDES 107 mg/dL; VLDL CHOLESTEROL 21 mg/dL
[2022-05-28 15:58] LABS: CREATININE,URINE 159.9 mg/dL; MICROALBUMIN,URINE 3.2 mg/dL (0-300.0)
[2022-05-28 20:51] LABS: ESTIMATED AVERAGE GLUCOSE 128 mg/dL (70-100); HEMOGLOBIN A1c% 6.1 % (4.27-6.07)
== END 2022-05-28 07:25 | disposition home or self-care (01) ==
LOC: LAB.S 07:24
PROVIDERS: ATTEND Family Medicine
DX: Z00.00 Encounter for general adult medical examination without abnormal findings (principal); E11.9 Type 2 diabetes mellitus without complications; R53.82 Chronic fatigue, unspecified; R10.9 Unspecified abdominal pain; G89.29 Other chronic pain; K21.9 Gastro-esophageal reflux disease without esophagitis; Z51.81 Encounter for therapeutic drug level monitoring; Z79.899 Other long term (current) drug therapy
CPT/HCPCS: 36415; 80053; 80061; 82043; 82570; 82607; 83036; 83721; 84443; 85025

== ENCOUNTER 2022-12-18 09:07 | Outpatient (CLI) | payer MEDICARE, OTHER ==
[2022-12-18 15:12] LABS: BASOPHILS % (AUTO) 0.5 %; EOSINOPHILS # (AUTO) 0.2 10^3/uL (0.0-0.7); HCT - HEMATOCRIT 42.3 % (37.0-47.0); HGB - HEMOGLOBIN 13.2 g/dL (12.0-16.0); LYMPHOCYTES # (AUTO) 1.9 10^3/uL (1.5-3.5); LYMPHOCYTES % (AUTO) 24.5 %; MEAN CORPUSCULAR HGB CONC 31.2 g/dL (32.0-36.0); MEAN CORPUSCULAR VOLUME 86.7 fL (81.0-99.0); MEAN PLATELET VOLUME 10.7 fL (7.9-10.8); MONOCYTES # (AUTO) 0.5 10^3/uL (0.0-1.0); MONOCYTES % (AUTO) 6.9 %; NEUTROPHILS # (AUTO) 4.9 10^3/uL (1.5-6.6); NEUTROPHILS % (AUTO) 64.7 %; PLT - PLATELET COUNT 240 10^3/uL (130-450); RED BLOOD COUNT 4.88 10^6/uL (4.20-5.40); RED CELL DISTRIBUTION WIDTH 14.8 % (12.0-15.0); WHITE BLOOD COUNT 7.6 x10^3/uL (4.8-10.8)
[2022-12-18 16:03] LABS: ALBUMIN 4.3 g/dL (3.2-5.5); BILIRUBIN,TOTAL 0.5 mg/dL (0.2-1.0); CALCIUM 9.5 mg/dL (8.5-10.3); CREATININE 0.9 mg/dL (0.6-1.3); POTASSIUM 4.2 mmol/L (3.5-4.5); TOTAL PROTEIN 6.5 g/dL (6.4-8.9)
[2022-12-18 16:07] LABS: THYROID STIMULATING HORMONE 1.35 uIU/mL (0.34-5.60)
[2022-12-18 16:13] LABS: FERRITIN 118.4 ng/mL (11.0-306.8)
== END 2022-12-18 09:08 | disposition home or self-care (01) ==
LOC: LAB.S 09:07
PROVIDERS: ATTEND Family Medicine
DX: R53.83 Other fatigue (principal); Z86.2 Personal history of diseases of the blood and blood-forming organs and certain disorders involving the immune mechanism; E55.9 Vitamin D deficiency, unspecified
CPT/HCPCS: 36415; 80053; 82306; 82728; 83540; 84443; 84466; 85025; 85651

== ENCOUNTER 2023-01-30 10:32 | Outpatient (CLI) | payer MEDICARE, OTHER | END 2023-01-30 10:33 | disposition short-term general hospital (02) | LOC: EMS 10:32 | DX: R07.9 Chest pain, unspecified (principal); R42 Dizziness and giddiness | CPT/HCPCS: A0425; A0427 ==

== ENCOUNTER 2023-06-17 07:41 | Outpatient (CLI) | payer MEDICARE, OTHER ==
[2023-06-17 14:50] LABS: BASOPHILS % (AUTO) 0.6 %; EOSINOPHILS # (AUTO) 0.3 10^3/uL (0.0-0.7); EOSINOPHILS % (AUTO) 4.5 %; HCT - HEMATOCRIT 40.1 % (37.0-47.0); HGB - HEMOGLOBIN 12.3 g/dL (12.0-16.0); LYMPHOCYTES # (AUTO) 1.8 10^3/uL (1.5-3.5); LYMPHOCYTES % (AUTO) 25.9 %; MEAN CORPUSCULAR HEMOGLOBIN 27.3 pg (27.0-31.0); MEAN CORPUSCULAR HGB CONC 30.7 g/dL (32.0-36.0); MEAN CORPUSCULAR VOLUME 89.1 fL (81.0-99.0); MEAN PLATELET VOLUME 10.9 fL (7.9-10.8); MONOCYTES # (AUTO) 0.6 10^3/uL (0.0-1.0); MONOCYTES % (AUTO) 8.4 %; NEUTROPHILS # (AUTO) 4.2 10^3/uL (1.5-6.6); NEUTROPHILS % (AUTO) 60.3 %; PLT - PLATELET COUNT 208 10^3/uL (130-450); RED CELL DISTRIBUTION WIDTH 14.6 % (12.0-15.0); WHITE BLOOD COUNT 6.9 x10^3/uL (4.8-10.8)
[2023-06-17 15:19] LABS: THYROID STIMULATING HORMONE 3.63 uIU/mL (0.34-5.60)
[2023-06-17 16:08] LABS: CREATININE,URINE 123.8 mg/dL; MICROALBUM/CREATININE RATIO,UR 31.5 ug/mg (<30.0); MICROALBUMIN,URINE 3.9 mg/dL
[2023-06-17 16:12] LABS: ALBUMIN 4.1 g/dL (3.2-5.5); ALBUMIN/GLOBULIN RATIO 1.9 (1.0-2.2); ALKALINE PHOSPHATASE 68 IU/L (42-121); ALT ALANINE AMINOTRANSFERASE 13 IU/L (10-60); AST ASPARTATE AMINOTRANSFERASE 14 IU/L (10-42); BILIRUBIN,TOTAL 0.4 mg/dL (0.2-1.0); BUN - BLOOD UREA NITROGEN 25 mg/dL (6-20); CALCIUM 9.8 mg/dL (8.5-10.3); CARBON DIOXIDE - CO2 29 mmol/L (21-32); CHLORIDE 107 mmol/L (101-111); CHOLESTEROL 231 mg/dL; CREATININE 0.9 mg/dL (0.6-1.3); GFR - MDRD 61 (>89); GLUCOSE 96 mg/dL (74-104); HDL CHOLESTEROL 46 mg/dL; LDL CHOLESTEROL,CALCULATED 142 mg/dL; LDL/HDL RATIO 3.1 (<4.4); POTASSIUM 4.3 mmol/L (3.5-4.5); SODIUM 141 mmol/L (135-145); TOTAL PROTEIN 6.3 g/dL (6.4-8.9); TRIGLYCERIDES 217 mg/dL (48-352); VLDL CHOLESTEROL 43 mg/dL
[2023-06-17 20:17] LABS: ESTIMATED AVERAGE GLUCOSE 117 mg/dL (70-100); HEMOGLOBIN A1c% 5.7 % (4.27-6.07)
== END 2023-06-17 07:42 | disposition home or self-care (01) ==
LOC: LAB.S 07:41
PROVIDERS: ATTEND Family Medicine
DX: Z00.00 Encounter for general adult medical examination without abnormal findings (principal); R53.83 Other fatigue; R73.03 Prediabetes; Z11.59 Encounter for screening for other viral diseases; K21.9 Gastro-esophageal reflux disease without esophagitis; Z51.81 Encounter for therapeutic drug level monitoring; Z79.899 Other long term (current) drug therapy
CPT/HCPCS: 36415; 80053; 80061; 82043; 82570; 82607; 83036; 83721; 84443; 85025; 86803

== ENCOUNTER 2023-07-09 13:57 | Outpatient (CLI) | payer MEDICARE, OTHER ==
--- NOTE | 2023-07-09 14:29 | XRAY Report ---
PROCEDURE: Forearm RT INDICATIONS: CONTUSION OF RIGHT FOREARM TECHNIQUE: 2 views of the forearm were acquired. COMPARISON: None. FINDINGS: Bones: No fractures or dislocations. No suspicious bony lesions. Soft tissues: No suspicious soft tissue calcifications or masses. IMPRESSION: No acute bony abnormality. Reviewed by: Chino Wall MD on 07/09/2023 2:28 PM PDT Approved by: Chino Wall MD on 07/09/2023 2:28 PM PDT Station ID: [id number]
== END 2023-07-09 23:59 | disposition home or self-care (01) ==
LOC: DI.S 13:57
PROVIDERS: ATTEND Physician Assistant Medical
DX: S50.11XA Contusion of right forearm, initial encounter (principal)

== ENCOUNTER 2023-08-26 08:00 | Outpatient (CLI) | payer MEDICARE, OTHER ==
--- NOTE | 2023-08-26 16:17 | XRAY Report ---
PROCEDURE: Knee 3V RT INDICATIONS: FALL WITH RIGHT KNEE PAIN TECHNIQUE: 3 views of the knee(s) were acquired. COMPARISON: 06/27/2016 FINDINGS: Bones: No fractures or dislocations. No suspicious bony lesions. Well-aligned arthroplasty without hardware complication. Soft tissues: No knee joint effusion. No suspicious soft tissue calcifications or masses. IMPRESSION: No acute bony abnormality. Well-aligned arthroplasty without hardware complication. Reviewed by: Chino Wall MD on 08/26/2023 4:15 PM PDT Approved by: Chino Wall MD on 08/26/2023 4:15 PM PDT Station ID: [id number]
--- NOTE | 2023-08-26 16:18 | XRAY Report ---
PROCEDURE: Foot 3+V RT INDICATIONS: FALL WITH RIGHT FOOT PAIN TECHNIQUE: 3 views of the foot were acquired. COMPARISON: None. FINDINGS: Bones: No fractures or dislocations. No suspicious bony lesions. Interphalangeal and first CMC chely int space narrowing with osteophytosis. Calcaneal enthesophytes Soft tissues: No tibiotalar joint effusion. Achilles tendon appears normal. IMPRESSION: No acute bony abnormality. Reviewed by: Chino Wall MD on 08/26/2023 4:16 PM PDT Approved by: Chino Wall MD on 08/26/2023 4:16 PM PDT Station ID: [id number]
--- NOTE | 2023-08-26 17:16 | XRAY Report ---
PROCEDURE: Cervical Spine 2-3V INDICATIONS: NECK PAIN TECHNIQUE: 4 view(s) of the cervical spine were acquired. COMPARISON: None. FINDINGS: Bones: No fractures or dislocations to the T1 level. The lateral masses of C1 appear intact on the odontoid view. No suspicious bony lesions. Moderate degenerative changes most pronounced at C6-C7. T his is demonstrable by joint space loss, osteophytosis, uncovertebral joint hypertrophy, and endplate sclerosis. Soft tissues: No prevertebral soft tissue swelling. IMPRESSION: No acute osseous abnormality. Moderate degenerative changes most pronounced at C6-C7. If clinically indicated MRI could be considered for further evaluation. Reviewed by: Francisco Gillis MD on 08/26/2023 5:14 PM PDT Approved by: Francisco Gillis MD on 08/26/2023 5:14 PM PDT Station ID: [id number]
--- NOTE | 2023-08-26 17:46 | XRAY Report ---
PROCEDURE: Hand 3+V LT INDICATIONS: FALL WITH LEFT HAND PAIN TECHNIQUE: 3 views of the hand(s) acquired. COMPARISON: None. FINDINGS: Bones: No fractures or dislocations. No suspicious bony lesions. Moderate degenerative changes at t he first CMC joint. Soft tissues: No suspicious soft tissue calcifications or masses. IMPRESSION: No fracture identified. Reviewed by: Francisco Gillis MD on 08/26/2023 5:45 PM PDT Approved by: Francisco Gillis MD on 08/26/2023 5:45 PM PDT Station ID: [id number]
--- NOTE | 2023-08-26 17:48 | XRAY Report ---
PROCEDURE: Wrist 3+V LT INDICATIONS: FALL WITH LEFT WRIST PAIN TECHNIQUE: 3 views of the wrist were acquired. COMPARISON: Same day right hand radiographs. FINDINGS: Bones: No fractures or dislocations. No suspicious bony lesions. Degenerative changes at the first MC joint. Soft tissues: No suspicious soft tissue calcifications or masses. IMPRESSION: No fracture identified. Reviewed by: Francisco Gillis MD on 08/26/2023 5:47 PM PDT Approved by: Francisco Gillis MD on 08/26/2023 5:47 PM PDT Station ID: [id number]
== END 2023-08-26 23:59 | disposition home or self-care (01) ==
LOC: DI.S 08:00
PROVIDERS: ATTEND Registered Nurse
DX: M47.812 Spondylosis without myelopathy or radiculopathy, cervical region (principal); M79.671 Pain in right foot; M25.561 Pain in right knee; Z96.651 Presence of right artificial knee joint; M19.032 Primary osteoarthritis, left wrist; M18.12 Unilateral primary osteoarthritis of first carpometacarpal joint, left hand

== ENCOUNTER 2023-09-18 17:45 | Outpatient (CLI) | payer MEDICARE, OTHER | END 2023-09-18 17:46 | disposition critical access hospital (66) | LOC: EMS 17:45 | DX: S01.112A Laceration without foreign body of left eyelid and periocular area, initial encounter (principal); R51.9 Headache, unspecified; R42 Dizziness and giddiness; M25.432 Effusion, left wrist; W18.30XA Fall on same level, unspecified, initial encounter; Y92.511 Restaurant or cafe as the place of occurrence of the external cause | CPT/HCPCS: A0425; A0427 ==

== ENCOUNTER 2023-09-18 18:22 | Emergency (ER) | payer MEDICARE, OTHER ==
--- NOTE | 2023-09-18 18:24 | ED Physician Documentation ---
PD HPI Fall - Stated complaint Stated Complaint: GLF - Additional information Additional information: 77-year-old female with history of hypertension, pneumonia, type 2 diabetes, diverticulitis, GI bleed, ulcers, GERD, chronic pain, osteoarthritis presents emergency department after mechanical ground-level fall. Patient says that she got out of the car she saw someone she knew she turned and missed stepped into the curb and fell and hit the left portion of her head. Patient says that she now feels funny and off no nausea or vomiting no loss of consciousness not any blood thinners. She also endorses and some cervical spinal tenderness with any movement of her head and significant left wrist pain. She does have some very mild superficial abrasions to both knees and says that she does not feel like they are broken she does have a right knee arthroplasty she is able to flex and extend both of them without any difficulty or pain. PD PAST MEDICAL HISTORY - Past Medical History Cardiovascular: Hypertension Respiratory: None, Pneumonia Endocrine/Autoimmune: Type 2 diabetes GI: GERD, GI bleed, Ulcers, Diverticulitis LEHR TENDER: None : None, Frequency HEENT: None, Dental implants Psych: Depression, Anxiety Musculoskeletal: Osteoarthritis, Chronic back pain Derm: None - Past Surgical History Past Surgical History: Yes General: Cholecystectomy, Appendectomy, Colonoscopy Ortho: Rotator cuff repair, Other /LEHR TENDER: Hysterectomy HEENT: Tonsil/Adenoidectomy - Present Medications Home Medications: Ambulatory Orders Medication Instructions Recorded Confirmed Cholecalciferol (Vitamin D3) 1,250 mcg PO DAILY 01/11/20 10/17/21 [Vitamin D3] metFORMIN [Glucophage] 500 mg PO DAILY 01/11/20 10/17/21 Esomeprazole Magnesium [Nexium] 40 mg PO DAILY 06/01/20 10/17/21 Sertraline [Zoloft] 1 tab PO DAILY 08/02/20 10/17/21 Cyclobenzaprine [Flexeril] 10 mg PO TID PRN 6 Days #20 tablet 09/18/23 - Allergies Allergies/Adverse Reactions: Allergies Allergy/AdvReac Type Severity Reaction Status Date / Time Penicillins Allergy Rash Verified 09/18/23 18:38 - Social History Does the pt smoke?: No Smoking Status: Never smoker Does the pt drink ETOH?: Yes Does the pt have substance abuse?: No - Immunizations Immunizations are current?: Yes - POLST Patient has POLST: No PD ED PE NORMAL - Vitals Vital signs reviewed: Yes - General General: Alert and oriented X 3, No acute distress, Well developed/nourished - HEENT HEENT: Other (left superficial eyelid abrasion) - Neck Neck: No bony TTP, C-Spine cleared by NEXUS criteria - Cardiac Cardiac: RRR - Respiratory Respiratory: No respiratory distress - Abdomen Abdomen: Normal bowel sounds, Soft - Extremities Extremities: Other (left wrist swelling with snuff box tenderness, strong radial pulse) Results - Vitals Vitals: Vital Signs - 24 hr 09/18/23 09/18/23 09/18/23 18:32 18:38 18:40 Temperature 36.5 C Heart Rate 84 78 Respiratory 17 17 17 Rate Blood Pressure 142/85 H O2 Saturation 96 96 09/18/23 09/18/23 09/18/23 19:34 20:01 20:36 Temperature Heart Rate 67 70 71 Respiratory 16 17 17 Rate Blood Pressure 164/95 H 169/101 H O2 Saturation 97 98 99 Oxygen O2 Source Room air - Rads (name of study) Head CT without contrast Relevant Findings:: Final report received, EMP independent interpretation of test, Other (No intracranial hemorrhages or abnormalities) Cervical spine without Relevant Findings:: Final report received, EMP independent interpretation of test, Other (No subluxation or fractures) LEft wrist Xray Relevant Findings:: Final report received, EMP independent interpretation of test, Other (no fractures) PD Medical Decision Making - ED course ED course: Left wrist x-ray 77-year-old female presents emergency department for head pain and left wrist pain after mechanical ground-level fall. Head CT was completed for further evaluation had no intracranial hemorrhages or abnormalities were found. We also completed a cervical spine without contrast for further evaluation and again no subluxation acute for any fractures or abnormalities are visualized. Left wrist x-ray was also completed for further evaluation of patient's left wrist swelling and pain. No fractures were visualized although patient does have snuffbox tenderness we went and placed her in a Velcro left thumb spica. She is told to have imaging repeated in about 7 to 10 days. Patient says that she has close contact with [facility] physician at the [facility] and will reach out to him and let her know about today's ER visit and he will repeat imaging in 7 to 10 days for the patient. Patient told alternate doing Tylenol ibuprofen for pain or discomfort all questions answered she safer discharge at this time. Departure - Departure Disposition: 01 Home, Self Care Clinical Impression: Fall from ground level Wrist sprain Qualifiers: Encounter type: initial encounter Laterality: left Qualified Code(s): S63.502A - Unspecified sprain of left wrist, initial encounter Head injury Qualifiers: Encounter type: initial encounter Qualified Code(s): S09.90XA - Unspecified injury of head, initial encounter Instructions: Falls Risks Prevent, Wrist Sprain Prescriptions: Cyclobenzaprine [Flexeril] 10 mg PO TID PRN 6 Days #20 tablet PRN Reason: Spasms Comments: Thank you for trusting us with your care. We have completed x-rays of your left wrist head CT as well as a neck CT and we are not seeing any acute abnormal findings. Please follow-up with your primary care provider about today's ER visit and consider repeat x-rays in 10 days for further evaluation of your left wrist. Please come back and if you are having any neurochanges nausea vomiting worsening head pain or any other concerning symptoms. Wishing a speedy recovery. Forms: PCP List Discharge Date/Time: 09/18/23 20:37
[2023-09-18] MEDS: HYDROmorphone 0.5 MG/0.5 ML SYRINGE IVP STA (19:12)
--- NOTE | 2023-09-18 19:14 | XRAY Report ---
PROCEDURE: Wrist 3+V LT INDICATIONS: Left wrist pain post GLF TECHNIQUE: 4 views of the wrist were acquired. COMPARISON: 08/26/2023 FINDINGS: Bones: No fractures or dislocations. Degenerative changes of the first CMC joint. No suspicious bon y lesions. Soft tissues: No suspicious soft tissue calcifications or masses. IMPRESSION: No acute bony abnormality. If pain persists with conservative management, consider repeat x-ray in 10 -14 days or cross-sectional imaging. Reviewed by: Ez Cardenas MD on 09/18/2023 7:12 PM PDT Approved by: Ez Cardenas MD on 09/18/2023 7:12 PM PDT Station ID: [id number]
--- NOTE | 2023-09-18 19:15 | CT Report ---
PROCEDURE: Head WO INDICATIONS: GLF, hit head TECHNIQUE: Noncontrast 4.5 mm thick angled axial sections acquired from the foramen magnum to the vertex. For r adiation dose reduction, the following was used: automated exposure control, adjustment of mA and/or kV according to patient size. COMPARISON: MRI brain 02/14/2016. FINDINGS: Image quality: Excellent. CSF spaces: Basal cisterns are patent. No extra-axial fluid collections. Ventricles are normal in size and shape. Brain: No midline shift. No intracranial masses or hemorrhage. Peterson-white matter interface is norm al. Skull and face: Calvarium and visualized facial bones are intact, without suspicious lesions. Sinuses: Visualized sinuses and mastoids are clear. IMPRESSION: No acute intracranial pathology. Reviewed by: Ez Cardenas MD on 09/18/2023 7:14 PM PDT Approved by: Ez Cardenas MD on 09/18/2023 7:14 PM PDT Station ID: [id number]
--- NOTE | 2023-09-18 19:18 | CT Report ---
PROCEDURE: Cervical Spine WO INDICATIONS: GLF neck pain, hit head TECHNIQUE: Noncontrast 3 mm thick sections acquired from the skull base to the T4 level. Sagittal and coronal r eformats were then constructed. For radiation dose reduction, the following was used: automated exp osure control, adjustment of mA and/or kV according to patient size. COMPARISON: X-ray cervical spine 08/26/2023. FINDINGS: Image quality: Excellent. Bones: No fractures or dislocations. Mild reversal of the normal cervical lordosis. Degenerative quentin nges, most pronounced at C6-C7. Visualized superior ribs are intact. Soft tissues: Prevertebral soft tissues are normal in thickness. No paravertebral hematomas. No ap ical pneumothoraces. IMPRESSION: 1.No acute, displaced fracture or traumatic subluxation. 2.Degenerative changes of the cervical spine, most pronounced at C6-C7. Reviewed by: Ez Cardenas MD on 09/18/2023 7:17 PM PDT Approved by: Ez Cardenas MD on 09/18/2023 7:17 PM PDT Station ID: [id number]
[2023-09-18 20:14] VITALS: BP 169/101
[2023-09-18] MEDS: ACETAMINOPHEN 500 MG TABLET PO STA (20:25)
[2023-09-18 20:44] VITALS: O2SAT 99
== END 2023-09-18 20:37 | disposition home or self-care (01) ==
LOC: EDUNIT# → ED 18:22
DX: S09.90XA Unspecified injury of head, initial encounter (principal); S63.502A Unspecified sprain of left wrist, initial encounter; S80.212A Abrasion, left knee, initial encounter; S80.211A Abrasion, right knee, initial encounter; W18.09XA Striking against other object with subsequent fall, initial encounter; Y93.89 Activity, other specified; Y92.810 Car as the place of occurrence of the external cause
CPT/HCPCS: 70450; 72125; 73110; 96374; 99284; A9270; J1170